=== PATIENT | male | born 1980 | race Caucasian/White ===

== ENCOUNTER 2019-03-05 21:46 | Emergency (ER) | payer OTHER, MEDICAID ==
[2019-03-05 23:02] VITALS: BP 123/84
[2019-03-05] MEDS ORDERED: Doxycycline 100 MG Cap PO ONE (23:23)
--- NOTE | 2019-03-05 23:28 | EDM.PDOC ---
ED HPI GENERAL MEDICAL PROBLEM - General Chief Complaint: Bite:Animal, Insect Stated Complaint: TICK BITE Time Seen by Provider: 03/05/19 22:06 Source of Information: Reports: Patient, Family () History Limitations: Reports: No Limitations - History of Present Illness INITIAL COMMENTS - FREE TEXT/NARRATIVE: Chief complaint: Tick bite This is a 38 year old male presents to ER with , concerns of tick bite to the right middle abdomen. has removed all of tick except for the head. would like the remaining tick head removed. no other concerns. Onset: Today Duration: Constant Location: Reports: Abdomen Quality: Reports: Other (reports no pain or drainage.) Severity: Mild Improves with: Reports: None Worsens with: Reports: None Context: Reports: Other (deer tick bite) Associated Symptoms: Reports: No Other Symptoms Treatments [employer]: Reports: Other (see below) (tick removal by ) Abdominal Pain Score (Numeric/FACES): 1 - Related Data Allergies Allergy/AdvReac Type Severity Reaction Status Date / Time amoxicillin [Amoxicillin] Allergy Intermediate Rash Verified 03/05/19 22:51 Home Meds: Home Meds Cetirizine HCl [Zyrtec] 1 tab PO DAILY 03/05/19 [History] Past Medical History HEENT History: Reports: Allergic Rhinitis, Sinusitis Musculoskeletal History: Reports: Fracture Dermatologic History: Reports: Psoriasis - Infectious Disease History Infectious Disease History: Reports: Chicken Pox, Herpes - Past Surgical History HEENT Surgical History: Reports: LASIK GI Surgical History: Reports: Hernia Repair/Other Social & Family History - Tobacco Use Smoking Status *Q: Never Smoker - Caffeine Use Caffeine Use: Reports: Coffee, Soda - Recreational Drug Use Recreational Drug Use: No ED ROS GENERAL - Review of Systems Review Of Systems: See Below Constitutional: Reports: No Symptoms Skin: Reports: Other (deer tick ) Neurological: Reports: No Symptoms Psychiatric: Reports: No Symptoms Hematologic/Lymphatic: Reports: No Symptoms Immunologic: Reports: No Symptoms ED EXAM, ANIMAL BITE - Physical Exam Exam: See Below Exam Limited By: No Limitations General Appearance: Alert, WD/WN, No Apparent Distress Skin Exam: Other (black noted in center of red area on abdomen. no bull eye rash.) Course - Vital Signs Last Recorded V/S: Last Vital Signs Temp 36.6 C 03/05/19 23:02 Pulse 68 03/05/19 23:02 Resp 19 03/05/19 23:02 BP 123/84 03/05/19 23:02 Pulse Ox 98 03/05/19 23:02 - Orders/Labs/Meds Meds: Medications Discontinued Medications Generic Name Dose Route Start Last Admin Trade Name Gen PRN Reason Stop Dose Admin Doxycycline Hyclate 200 mg 03/05/19 23:23 03/05/19 23:32 Vibramycin PO 03/05/19 23:24 200 mg ONETIME ONE Administration - Re-Assessments/Exams Free Text/Narrative Re-Assessment/Exam: abdomen: verbal permission by Willian Wong -area cleansed with Betadine -needle #18, gently remove tick head without difficulty -bandage applied -Doxy 200mg prophlaxis -advise follow up in Primary Care prn Return to ER if not improved or has any concerns. Departure - Departure Time of Disposition: 23:24 Disposition: Home, Self-Care 01 Condition: Good Clinical Impression: Risk of exposure to Lyme disease - Discharge Information *PRESCRIPTION DRUG MONITORING PROGRAM REVIEWED*: Not Applicable *COPY OF PRESCRIPTION DRUG MONITORING REPORT IN PATIENT MICAELA: Not Applicable Instructions: Tick Bite Information, Adult Referrals: PCP,None [Primary Care Provider] - Forms: ED Department Discharge Care Plan Goals: [place] Tick, at high risk for Lymes Disease -given Doxycycline 200 mg by mouth once -skin care, apply band aide daily til healed over. -may apply bacitracin ointment to tick bite sore daily return to ER if develops any fever, chills, nausea, vomiting, diarrhea, rash or not improved. - Problem List & Annotations (1) Risk of exposure to Lyme disease SNOMED Code(s): 05456876 Code(s): Z91.89 - [facility] PERSONAL RISK FACTORS, NOT ELSEWHERE CLASSIFIED Status: Acute Priority: High - Problem List Review Problem List Initiated/Reviewed/Updated: Yes - Assessment/Plan Plan: [place] Tick, at high risk for Lymes Disease -given Doxycycline 200 mg by mouth once -skin care, apply band aide daily til healed over. -may apply bacitracin ointment to tick bite sore daily return to ER if develops any fever, chills, nausea, vomiting, diarrhea, rash or not improved.
== END 2019-03-05 23:40 | disposition home or self-care (01) ==
LOC: JP.ED 21:46
DX: S30.861A Insect bite (nonvenomous) of abdominal wall, initial encounter (principal); W57.XXXA Bitten or stung by nonvenomous insect and other nonvenomous arthropods, initial encounter; Z88.0 Allergy status to penicillin; Z79.899 Other long term (current) drug therapy; Z91.89 Other specified personal risk factors, not elsewhere classified
CPT/HCPCS: 99281; A9270

== ENCOUNTER 2022-03-10 17:55 | Emergency (ER) | payer OTHER ==
[2022-03-10 18:12] VITALS: BP 118/77; PULSE 93
[2022-03-10] MEDS ORDERED: Lidocaine 1% 5 ML VIAL INJECT ONE (18:24)
[2022-03-10] MEDS ORDERED: Bacitracin Oint 1 GM U/D Packet TOP ONE (18:25)
== END 2022-03-10 18:53 | disposition home or self-care (01) ==
LOC: JP.ED 17:55
DX: S01.01XA Laceration without foreign body of scalp, initial encounter (principal); Z88.0 Allergy status to penicillin; W22.09XA Striking against other stationary object, initial encounter
CPT/HCPCS: 12001; 99281; 99283

== ENCOUNTER 2023-02-09 19:00 | Inpatient (IN) | payer OTHER, MEDICAID ==
[2023-02-09] MEDS ORDERED: Pantoprazole 40 MG Vial IVPUSH ONE (19:27)
[2023-02-09] MEDS ORDERED: Octreotide 100 MCG/ML SDV IVPUSH ONE (19:28)
[2023-02-09] MEDS: Sodium Chloride 0.9% 1,000 ML IV SCH ×3 (19:59→23:00)
[2023-02-09] MEDS ORDERED: Pantoprazole 40 MG Vial ONE (20:06)
[2023-02-09 20:21] LABS: ESTIMATED GFR 95 mL/min (>60)
[2023-02-09] MEDS ORDERED: Sodium Chloride 0.9% 1,000 ML IV SCH ×2 (21:00)
[2023-02-09 21:28] LABS: CORONAVIRUS COVID-19 NAA NEGATIVE (NEGATIVE)
[2023-02-09] MEDS ORDERED: Acetaminophen 325 MG Tab PO PRN (22:35)
[2023-02-09] MEDS ORDERED: Ondansetron 4 MG/2 ML SDV IV PRN (22:35)
[2023-02-09] MEDS ORDERED: Ondansetron 4 MG Tab.DIS PO PRN (22:35)
[2023-02-09] MEDS ORDERED: Magnesium Hydroxide 400 MG/5 ML Susp 30 ML Cup PO PRN (22:35)
[2023-02-09] MEDS ORDERED: cefTRIAXone 2 GM in Sodium Chloride 0.9% 50 ML IV SCH (23:00)
[2023-02-09] MEDS ORDERED: Benzocaine/Cetylpyridinium/Menthol Lozenge MUCMEM PRN (23:31)
[2023-02-09] MEDS: Pantoprazole 80 MG in Sodium Chloride 0.9% 100 ML IV SCH (23:32)
[2023-02-10] MEDS ORDERED: Propofol 200 MG/20 ML SDV ONE (07:36)
[2023-02-10] MEDS ORDERED: Midazolam 1 MG/ML 2 ML SDV ONE (07:36)
[2023-02-10] MEDS ORDERED: fentaNYL 100 MCG/2 ML SDV ONE (07:36)
[2023-02-10] MEDS: Pantoprazole 80 MG in Sodium Chloride 0.9% 100 ML IV SCH (08:32)
[2023-02-10] MEDS: Sodium Chloride 0.9% 1,000 ML IV SCH (08:33)
[2023-02-10] MEDS ORDERED: Pantoprazole 40 MG Tab.CR PO SCH (09:15)
[2023-02-10 12:40] VITALS: BP 141/70; PULSE 63
[2023-02-13 01:10] LABS: H. PYLORI BREATH TEST Negative (Negative)
== END 2023-02-10 13:34 | disposition home or self-care (01) | DRG 379 ==
LOC: JP.ED 19:00 → JP.ICU 22:01
PROVIDERS: ADMIT Internal Medicine; ATTEND Internal Medicine
PROC: 0DB68ZX Excision of Stomach, Via Natural or Artificial Opening Endoscopic, Diagnostic (ICD-10-PCS; principal; 2023-02-10)
DX: K25.4 Chronic or unspecified gastric ulcer with hemorrhage (principal); L40.9 Psoriasis, unspecified; J30.9 Allergic rhinitis, unspecified; F17.210 Nicotine dependence, cigarettes, uncomplicated; K44.9 Diaphragmatic hernia without obstruction or gangrene; Z98.890 Other specified postprocedural states; Z88.0 Allergy status to penicillin
CPT/HCPCS: 0241U; 36415; 43752; 71045; 71045-26; 74018; 74018-26; 80048; 80053; 83013; 83605; 85018; 85025; 85027; 85610; 85730; 86850; 86900; 86901; 86920; 86922; 87081; 96361; 96365; 96368; 96375; 96376; 99222; 99238; 99285; 99285-25; A9270-GY; C9113; J0696; J2250; J2354-JA; J2704; J3010; J3490; J7030